=== PATIENT | male | born 1965 | race Caucasian/White ===

== ENCOUNTER 2022-07-14 13:16 | Inpatient (IN) ==
[2022-07-14 13:50] LABS: ABS Lymphocytes 1.3 10^3/ul (1.0-4.8); ABS Monocytes 0.5 10^3/ul (0-0.8); ABS Neutrophils 4.5 10^3/ul (1.5-7.7); Hematocrit 48 % (42-52); Hemoglobin 16.2 g/dL (14.0-18.0); Lymphocyte % 21.1 %; Mean Corpuscular HGB Conc 34 g/dL (31-36); Mean Corpuscular Hemoglobin 28 pg (27-31); Mean Corpuscular Volume 83 fL (80-94); Mean Platelet Volume 8.4 fL (7.4-10.4); Nucleated Red Blood Cells % 0.1; Platelet Count 176 10^3/uL (150-450); Red Blood Count 5.81 10^6 /uL (4.18-5.48); Red Cell Distribution Width 15 % (10-15); White Blood Count 6.3 10^3/uL (3.5-10.8)
[2022-07-14 14:29] LABS: Albumin/Globulin Ratio 1.4 (1-3); Calcium 8.7 mg/dL (8.6-10.3); Globulin 2.8 g/dL (2-4); Total Bilirubin 0.8 mg/dL (0.2-1.0); Total Protein 6.8 g/dL (6.4-8.9); eGFR CKD-EPI 72.1 (>60)
[2022-07-14 15:02] LABS: Potassium 3.4 mmol/L (3.5-5.0)
[2022-07-14 15:04] LABS: Urine Benzodiazepine Screen None Detected (None Detect); Urine Cannabinoids Screen Presumptive Positive (None Detect); Urine Opiates Screen None Detected (None Detect)
[2022-07-14 15:36] LABS: High Sensitivity Troponin 1 Hr 7 pg/mL (<20)
[2022-07-14] MEDS ORDERED: Al Hydrox/Mg Hydrox/Simet LIQ 30 ML UDC PO PRN (20:42)
[2022-07-14] MEDS ORDERED: Ketorolac 10 mg TAB (NF) PO PRN (20:46)
[2022-07-14] MEDS ORDERED: Ondansetron ODT 4 mg TAB 4 MG TAB PO PRN (20:47)
[2022-07-14] MEDS ORDERED: Nicotine GUM 2MG FRUIT FLAVOR PO PRN (21:00)
[2022-07-15] MEDS ORDERED: Albuterol HFA INHALER 8 gm MDI INH PRN (06:01)
[2022-07-15 08:13] LABS: HDL Cholesterol 32.4 mg/dL
[2022-07-15] MEDS: Vitamin THERAPEUTIC TAB PO SCH (10:26)
[2022-07-15] MEDS: Nicotine PATCH 21 MG/24 HR PATCH TRANSDERM SCH (10:26)
[2022-07-16] MEDS: Nicotine PATCH 21 MG/24 HR PATCH TRANSDERM SCH (08:44)
[2022-07-16] MEDS: Vitamin THERAPEUTIC TAB PO SCH (08:44)
[2022-07-16 09:37] VITALS: BP 146/69
== END 2022-07-16 14:59 | disposition home or self-care (01) | DRG 755 ==
LOC: ED 13:16 → EDHOLD 19:31 → BSU 20:41
PROVIDERS: ADMIT Psychiatry & Neurology Psychiatry; ATTEND Psychiatry & Neurology Psychiatry